=== PATIENT | male | born 1985 | race Caucasian/White ===

== ENCOUNTER 2019-12-28 04:59 | Inpatient (IN) | payer BC ==
[~2019-12-28] VITALS: Ht 177.8 cm; Wt 66.0 kg
[2019-12-28 05:33] LABS: CLARITY,URINE CLEAR (Clear); COLOR,URINE YELLOW (Yellow); GLUCOSE, URINE NEGATIVE (Neg); KETONES,URINE NEGATIVE (Neg); LEUKOCYTE ESTERASE ,URINE NEGATIVE (Neg); NITRITES, URINE NEGATIVE (Neg); OCCULT BLOOD,URINE NEGATIVE (Neg); PROTEIN,URINE NEGATIVE (Neg); UROBILINOGEN,URINE 0.2 E.U/dL (0.2-1.0)
[2019-12-28 05:34] LABS: BASOPHILS % (AUTO) 0.5 % (0-1); EOSINOPHILS # (AUTO) 0.1 X10'3 (0-0.9); EOSINOPHILS % (AUTO) 2.4 % (0-6); HEMATOCRIT 44.6 % (42.0-52.0); HEMOGLOBIN 15.3 g/dl (14.0-17.9); LYMPHOCYTES # (AUTO) 1.8 X10'3 (1.1-4.8); MEAN CORPUSCULAR HEMOGLOBIN 30.9 PG (27.0-31.0); MEAN CORPUSCULAR HGB CONC 34.3 g/dL (33.0-36.5); MEAN CORPUSCULAR VOLUME 90.1 FL (78-98); MEAN PLATELET VOLUME 7.3 FL (7.4-10.4); MONOCYTES # (AUTO) 0.5 X10'3 (0-0.9); MONOCYTES % (AUTO) 8.1 % (2-12); NEUTROPHILS # (AUTO) 3.6 X10'3 (1.8-7.7); PLATELET COUNT 317 X10'3 (140-440); RED BLOOD COUNT 4.95 X10'6 (4.70-6.10); RED CELL DISTRIBUTION WIDTH 12.6 % (11.5-14.5); WHITE BLOOD COUNT 6.1 X10'3 (4.5-11.0)
[2019-12-28 05:42] LABS: UA COLLECTION TYPE CLN CATCH MIDSTREAM
[2019-12-28 05:45] LABS: ALANINE AMINOTRANSFERASE 36 U/L (12-78); ALBUMIN 4.1 G/DL (3.4-5.0); ALBUMIN/GLOBULIN RATIO 1.5 (1.1-1.5); ALKALINE PHOSPHATASE 73 IU/L (46-116); ANION GAP 12 (8-16); ASPARTATE AMINO TRANSFERASE 22 U/L (10-37); BILIRUBIN,TOTAL 0.8 MG/DL (0.1-1.0); BLOOD UREA NITROGEN 12 MG/DL (7-18); BUN/CREATININE RATIO 12.4 (5.4-32.0); CALCIUM 8.7 MG/DL (8.5-10.1); CHLORIDE 104 MMOL/L (99-107); CREATININE 0.97 MG/DL (0.60-1.10); GLUCOSE 161 MG/DL (70-104); POTASSIUM 3.2 MMOL/L (3.5-5.1); SODIUM 141 MMOL/L (135-145); TOTAL CARBON DIOXIDE 24.8 MMOL/L (24-32); TOTAL PROTEIN 6.9 G/DL (6.4-8.2); eGFR 88 ML/MIN
[2019-12-28 06:06] LABS: LIPASE 10775 U/L (73-393)
[2019-12-28] MEDS ORDERED: morphine 4 MG/ML inj SYRINge IV PRN (06:40)
[2019-12-28] MEDS ORDERED: ondansetron/PF 4mg/2ml inj IV ONE (06:40)
[2019-12-28] MEDS ORDERED: normal saline 1000ML IV soln IVB ONE (06:40)
[2019-12-28] MEDS ORDERED: morphine 4 MG/ML inj SYRINge IV ONE (07:20)
[2019-12-28] MEDS ORDERED: iohexol 300mg/ml 100ml inj. ONE (08:02)
[2019-12-28] MEDS ORDERED: HYDROmorphone 1 mg/ml syringe IV ONE (09:10)
[2019-12-28] MEDS ORDERED: acetaminophen 650mg rectal suppository RC PRN (09:15)
[2019-12-28] MEDS ORDERED: magnesium 2GM in 50ml NS 50 ML IV PRN (09:15)
[2019-12-28] MEDS ORDERED: potassium Cl 20 mEq SR tablet PO PRN ×2 (09:15)
[2019-12-28] MEDS ORDERED: HYDROcodone/acetaminophen 10/325mg tab PO PRN (09:15)
[2019-12-28] MEDS ORDERED: HYDROcodone/acetaminophen 5mg/325mg tablet PO PRN (09:15)
[2019-12-28] MEDS ORDERED: HYDROmorphone inj. 0.5 MG/0.5 ML DISP.SYRIN IV PRN (09:15)
[2019-12-28] MEDS ORDERED: thiamine 100mg/ml 2ml inj. IV ONE (09:15)
[2019-12-28] MEDS ORDERED: metoclopramide 5 mg/ml inj IV PRN (09:15)
[2019-12-28] MEDS ORDERED: magnesium Cl slow-release 64mg tablet PO PRN (09:15)
[2019-12-28] MEDS ORDERED: LORazepam 2 mg/ml vial IV PRN (09:15)
[2019-12-28] MEDS ORDERED: magnesium 4gm in 100ml NS 100 ML IV PRN (09:15)
[2019-12-28] MEDS ORDERED: haloperidol lactate 5mg/ml inj IM PRN (09:15)
[2019-12-28] MEDS ORDERED: haloperidol 5mg tablet PO PRN (09:15)
[2019-12-28] MEDS ORDERED: mag hydrox/Alum hydrox/simeth 30ml oral suspension PO PRN (09:15)
[2019-12-28] MEDS ORDERED: acetaminophen 325mg tablet PO PRN ×2 (09:15)
[2019-12-28] MEDS ORDERED: potassium CL 10mEq/100ml bag 100 ML IV PRN (09:15)
[2019-12-28] MEDS ORDERED: magnesium hydroxide 30ml (MOM) UD suspension PO PRN (09:15)
[2019-12-28] MEDS ORDERED: dextrose 50%-water 50ml dispensing syringe IV PRN (09:15)
[2019-12-28] MEDS ORDERED: bisacodyl 10mg suppository rectal RC PRN (09:15)
[2019-12-28] MEDS ORDERED: NO HOME MEDS (09:24)
[2019-12-28] MEDS: nicotine 14mg patch - 24hr TD SCH (09:30)
[2019-12-28] MEDS: potassium Cl 20mEq in NS 1,000 ML IV SCH ×2 (09:59→19:11)
--- NOTE | 2019-12-28 10:57 | NUR ---
KIRSTY telephone report phoned to admission nurse Addendum: 12/28/19 at 1101 by KATHLEEN Phoned report to RN. Yumiko Pt to be transported to admission bed shortly.
--- NOTE | 2019-12-28 11:02 | NUR ---
Received report from LOS Scherer. Awaiting patient arrival to room 344B.
[2019-12-28 11:03] LABS: PARTIAL THROMBOPLASTIN TIME 23 SECONDS (22-32)
[2019-12-28] MEDS: HYDROmorphone 1 mg/ml syringe IV PRN (11:54)
[2019-12-28] MEDS: potassium CL 10mEq/100ml bag 100 ML IV PRN ×4 (11:56→19:49)
[2019-12-28] MEDS: ondansetron/PF 4mg/2ml inj IV PRN ×2 (12:00→21:01)
--- NOTE | 2019-12-28 12:07 | NUR ---
Received patient to room 344B. Patient alert and oriented and c/o pain 12/20 to "all around abdomen." Dr. You notified and received order for dilaudid [employer] standard settings. Patient oriented to room and call light. Bed is low and locked and call light within patient's reach.
[2019-12-28 12:10] VITALS: BP 139/83
[2019-12-28] MEDS: HYDROmorphone/NS 1 mg/ml CADD 50 ML IV SCH ×6 (13:35→23:00)
--- NOTE | 2019-12-28 15:21 | NUR ---
Nutrition Consult: Pt admit w/ acute pancreatitis, hypokalemia, and etoh/tobacco abuse per MD. Drinks 6-7 beers/day per EMR. Lipase 29806. No tox screen and MCV WNL at this time. Pt has been advanced to clear liquid diet today pending PO hx. S/p one time thiamin dose w/ N/V/abdominal pain noted per EMR; RD d/w RN regarding banana bag if MD agreeable given etoh hx and current GI symptoms. Pt well-developed/well-nourished per EMR. Will monitor for PO diet advancement and tolerance this admit. Rec: 1. advance diet as medically indicated to low-fat 2. monitor for ONS needs as diet advances 3. thiamin, folic, MVI if MD agreeable given etoh hx 4. bowel care as needed 5. scaled wt Addendum: 12/28/19 at [address] Amended: Links added.
--- NOTE | 2019-12-28 18:30 | NUR ---
Patient in room [facility]. I have received report from Shaggy MADISON and had the opportunity to ask questions and assume patient care.
--- NOTE | 2019-12-28 18:41 | NUR ---
Problems reprioritized. Patient report given, questions answered & plan of care reviewed with LOS Shepard.
[2019-12-28] MEDS: K and/or MAG REPLACEMENT MC SCH (19:13)
[2019-12-28 20:00] VITALS: BP 128/76
[2019-12-29] VITALS: BP 109/66
[2019-12-29] MEDS: HYDROmorphone/NS 1 mg/ml CADD 50 ML IV SCH ×7 (01:00→13:00)
[2019-12-29] MEDS: potassium Cl 20mEq in NS 1,000 ML IV SCH (02:11)
[2019-12-29 05:11] LABS: BASOPHILS % (AUTO) 0 % (0-1); EOSINOPHILS % (AUTO) 0.1 % (0-6); HEMATOCRIT 46.4 % (42.0-52.0); HEMOGLOBIN 15.6 g/dl (14.0-17.9); LYMPHOCYTES # (AUTO) 0.7 X10'3 (1.1-4.8); LYMPHOCYTES % (AUTO) 5.6 % (21-51); MEAN CORPUSCULAR HEMOGLOBIN 30.9 PG (27.0-31.0); MEAN CORPUSCULAR HGB CONC 33.7 g/dL (33.0-36.5); MEAN CORPUSCULAR VOLUME 91.5 FL (78-98); MEAN PLATELET VOLUME 7.2 FL (7.4-10.4); MONOCYTES # (AUTO) 0.6 X10'3 (0-0.9); MONOCYTES % (AUTO) 4.6 % (2-12); NEUTROPHILS # (AUTO) 11.6 X10'3 (1.8-7.7); NEUTROPHILS % (AUTO) 89.7 % (42-75); PLATELET COUNT 242 X10'3 (140-440); RED BLOOD COUNT 5.07 X10'6 (4.70-6.10); RED CELL DISTRIBUTION WIDTH 12.9 % (11.5-14.5); WHITE BLOOD COUNT 12.9 X10'3 (4.5-11.0)
[2019-12-29 05:16] LABS: ALANINE AMINOTRANSFERASE 25 U/L (12-78); ALBUMIN 3.5 G/DL (3.4-5.0); ALBUMIN/GLOBULIN RATIO 1.3 (1.1-1.5); ALKALINE PHOSPHATASE 61 IU/L (46-116); ANION GAP 8 (8-16); ASPARTATE AMINO TRANSFERASE 22 U/L (10-37); BILIRUBIN,TOTAL 0.7 MG/DL (0.1-1.0); BLOOD UREA NITROGEN 5 MG/DL (7-18); BUN/CREATININE RATIO 5.7 (5.4-32.0); CALCIUM 8.3 MG/DL (8.5-10.1); CHLORIDE 105 MMOL/L (99-107); CHOLESTEROL 160 MG/DL (0-200); CREATININE 0.87 MG/DL (0.60-1.10); GLUCOSE 89 MG/DL (70-104); MAGNESIUM 1.9 MG/DL (1.5-2.4); POTASSIUM 4.6 MMOL/L (3.5-5.1); SODIUM 141 MMOL/L (135-145); TOTAL CARBON DIOXIDE 28.3 MMOL/L (24-32); TOTAL PROTEIN 6.2 G/DL (6.4-8.2); eGFR > 90 ML/MIN
[2019-12-29 05:17] LABS: HDL CHOLESTEROL 54 MG/DL (35-60); LDL CHOLESTEROL 88 MG/DL (50-100); TRIGLYCERIDES 73 MG/DL (20-135)
--- NOTE | 2019-12-29 06:35 | NUR ---
Problems reprioritized. Patient report given, questions answered & plan of care reviewed with Angella MADISON.
--- NOTE | 2019-12-29 06:44 | NUR ---
Patient in room [facility] 344. I have received report from adarsh MADISON and had the opportunity to ask questions and assume patient care.
[2019-12-29 07:00] VITALS: BP 132/88
[2019-12-29] MEDS: K and/or MAG REPLACEMENT MC SCH ×2 (08:00→20:00)
[2019-12-29] MEDS: nicotine 14mg patch - 24hr TD SCH (08:00)
[2019-12-29] MEDS: enoxaparin 40mg/0.4ml syringe SUBCUT SCH (08:12)
[2019-12-29] MEDS ORDERED: CefTRIAXone 2gm/D5W 50ml 50 ML IV ONE (09:05)
[2019-12-29 11:45] VITALS: BP 121/79
[2019-12-29] MEDS: normal saline 1000ml 1,000 ML IV SCH (14:09)
[2019-12-29] MEDS ORDERED: CADD PCA waste documentation MC SCH (14:20)
[2019-12-29 15:01] LABS: LIPASE 6211 U/L (73-393)
[2019-12-29] MEDS: HYDROmorphone 1 mg/ml syringe IV PRN (15:34)
--- NOTE | 2019-12-29 17:53 | NUR ---
Patient seen by Dr singleton . danya alaniz me, patient commenced on dilaudid 1mg q4hrly. up to shower continues with clear liquids.will continue to monitor.
[2019-12-29 18:00] VITALS: BP 103/69
--- NOTE | 2019-12-29 18:30 | NUR ---
Problems reprioritized. Patient report given, questions answered & plan of care reviewed with Kenan MADISON.
[2019-12-29] MEDS: ondansetron/PF 4mg/2ml inj IV PRN (18:57)
[2019-12-29] MEDS: temazepam 15mg capsule PO PRN (22:23)
[2019-12-30] VITALS: BP 105/64
[2019-12-30] MEDS: normal saline 1000ml 1,000 ML IV SCH ×3 (00:54→21:01)
[2019-12-30] MEDS: HYDROmorphone 1 mg/ml syringe IV PRN (02:23)
[2019-12-30 05:46] LABS: BASOPHILS % (AUTO) 0.1 % (0-1); EOSINOPHILS % (AUTO) 0.3 % (0-6); HEMATOCRIT 40.6 % (42.0-52.0); HEMOGLOBIN 13.8 g/dl (14.0-17.9); LYMPHOCYTES % (AUTO) 8.9 % (21-51); MEAN CORPUSCULAR HEMOGLOBIN 31.2 PG (27.0-31.0); MEAN CORPUSCULAR HGB CONC 33.8 g/dL (33.0-36.5); MEAN CORPUSCULAR VOLUME 92.3 FL (78-98); MEAN PLATELET VOLUME 7.2 FL (7.4-10.4); MONOCYTES # (AUTO) 0.6 X10'3 (0-0.9); MONOCYTES % (AUTO) 5.9 % (2-12); NEUTROPHILS # (AUTO) 9.3 X10'3 (1.8-7.7); NEUTROPHILS % (AUTO) 84.8 % (42-75); PLATELET COUNT 215 X10'3 (140-440); RED CELL DISTRIBUTION WIDTH 12.6 % (11.5-14.5)
[2019-12-30 06:08] LABS: ALANINE AMINOTRANSFERASE 134 U/L (12-78); ALBUMIN 3.1 G/DL (3.4-5.0); ALKALINE PHOSPHATASE 130 IU/L (46-116); ANION GAP 5 (8-16); ASPARTATE AMINO TRANSFERASE 102 U/L (10-37); BILIRUBIN,TOTAL 0.8 MG/DL (0.1-1.0); BLOOD UREA NITROGEN 6 MG/DL (7-18); BUN/CREATININE RATIO 7.4 (5.4-32.0); CALCIUM 8.4 MG/DL (8.5-10.1); CHLORIDE 104 MMOL/L (99-107); CREATININE 0.81 MG/DL (0.60-1.10); GLUCOSE 79 MG/DL (70-104); MAGNESIUM 2.1 MG/DL (1.5-2.4); POTASSIUM 3.6 MMOL/L (3.5-5.1); SODIUM 139 MMOL/L (135-145); TOTAL CARBON DIOXIDE 29.9 MMOL/L (24-32); TOTAL PROTEIN 6.1 G/DL (6.4-8.2); eGFR > 90 ML/MIN
--- NOTE | 2019-12-30 06:56 | NUR ---
Patient in room [facility] 344. I have received report from Knean MADISON and had the opportunity to ask questions and assume patient care.
[2019-12-30 07:00] VITALS: BP 100/58
[2019-12-30] MEDS: nicotine 14mg patch - 24hr TD SCH (08:00)
[2019-12-30] MEDS: K and/or MAG REPLACEMENT MC SCH ×2 (08:00→19:08)
[2019-12-30] MEDS: enoxaparin 40mg/0.4ml syringe SUBCUT SCH (08:00)
[2019-12-30] MEDS ORDERED: LORazepam 2 mg/ml vial IV PRN (09:15)
[2019-12-30] MEDS ORDERED: LORazepam 1 MG tablet PO PRN (09:15)
[2019-12-30 11:00] VITALS: BP 100/58
[2019-12-30 14:05] LABS: LIPASE 2025 U/L (73-393)
--- NOTE | 2019-12-30 16:00 | NUR ---
patient seen by Dr singleton. IV fluids changed, Diet increased to Reg. patient c/o stomach pain following diet increased given maalox with effect. . Ambulating in hallway, will continue to monitor.
[2019-12-30 18:00] VITALS: BP 124/73
--- NOTE | 2019-12-30 18:12 | NUR ---
Problems reprioritized. Patient report given, questions answered & plan of care reviewed with Prudence RN.
[2019-12-30] MEDS: temazepam 15mg capsule PO PRN (22:08)
[2019-12-31] VITALS: BP 108/64
[2019-12-31 05:11] LABS: BASOPHILS % (AUTO) 0.3 % (0-1); EOSINOPHILS # (AUTO) 0.1 X10'3 (0-0.9); EOSINOPHILS % (AUTO) 1.2 % (0-6); HEMATOCRIT 38.4 % (42.0-52.0); HEMOGLOBIN 13.1 g/dl (14.0-17.9); LYMPHOCYTES % (AUTO) 12.3 % (21-51); MEAN CORPUSCULAR HEMOGLOBIN 31.2 PG (27.0-31.0); MEAN CORPUSCULAR HGB CONC 34.2 g/dL (33.0-36.5); MEAN CORPUSCULAR VOLUME 91.4 FL (78-98); MEAN PLATELET VOLUME 7.4 FL (7.4-10.4); MONOCYTES # (AUTO) 0.6 X10'3 (0-0.9); MONOCYTES % (AUTO) 7.4 % (2-12); NEUTROPHILS # (AUTO) 6.2 X10'3 (1.8-7.7); NEUTROPHILS % (AUTO) 78.8 % (42-75); PLATELET COUNT 239 X10'3 (140-440); RED BLOOD COUNT 4.19 X10'6 (4.70-6.10); RED CELL DISTRIBUTION WIDTH 12.5 % (11.5-14.5); WHITE BLOOD COUNT 7.9 X10'3 (4.5-11.0)
[2019-12-31 05:22] LABS: ALANINE AMINOTRANSFERASE 80 U/L (12-78); ALBUMIN/GLOBULIN RATIO 0.9 (1.1-1.5); ALKALINE PHOSPHATASE 107 IU/L (46-116); ANION GAP 8 (8-16); ASPARTATE AMINO TRANSFERASE 39 U/L (10-37); BILIRUBIN,TOTAL 0.6 MG/DL (0.1-1.0); BLOOD UREA NITROGEN 7 MG/DL (7-18); BUN/CREATININE RATIO 8.1 (5.4-32.0); CALCIUM 8.4 MG/DL (8.5-10.1); CHLORIDE 106 MMOL/L (99-107); CREATININE 0.86 MG/DL (0.60-1.10); GLUCOSE 100 MG/DL (70-104); LIPASE 1077 U/L (73-393); MAGNESIUM 2.2 MG/DL (1.5-2.4); POTASSIUM 3.7 MMOL/L (3.5-5.1); SODIUM 143 MMOL/L (135-145); TOTAL CARBON DIOXIDE 29.4 MMOL/L (24-32); TOTAL PROTEIN 6.4 G/DL (6.4-8.2); eGFR > 90 ML/MIN
--- NOTE | 2019-12-31 06:35 | NUR ---
Patient in room [facility]. I have received report from LOS Jacobs and had the opportunity to ask questions and assume patient care.
[2019-12-31 07:12] VITALS: BP 104/68
[2019-12-31] MEDS: nicotine 14mg patch - 24hr TD SCH (08:00)
[2019-12-31] MEDS: K and/or MAG REPLACEMENT MC SCH (08:00)
[2019-12-31] MEDS: enoxaparin 40mg/0.4ml syringe SUBCUT SCH (08:00)
[2019-12-31] MEDS ORDERED: PANT40TA4 PO (10:10)
[2019-12-31] MEDS ORDERED: FOLI0.4T2 PO (10:10)
[2019-12-31] MEDS ORDERED: THIA50TA10 PO (10:10)
--- NOTE | 2019-12-31 11:37 | NUR ---
Pt discharged at 1125 to home, with all belongings. Discharge instructions and medications reviewed. New prescriptions sent to [facility] on [facility]. Pt instructed to follow up with labs in 1 week to reassess his lipase level. IV DC'd, cannula intact. Pt instructed to return to ED if symptoms return, and to abstain from alcohol. Pt escorted to front lobby by student RN.
[2020-01-01] MEDS ORDERED: LORazepam 2 mg/ml vial IV PRN (09:15)
[2020-01-01] MEDS ORDERED: LORazepam 1 MG tablet PO PRN (09:15)
== END 2019-12-31 11:46 | disposition home or self-care (01) | DRG 440 ==
LOC: ER 05:00 → ED HOLD 09:11 → SUR 3N 11:15
PROVIDERS: ADMIT Family Medicine; ATTEND Family Medicine
PROC: BW211ZZ Computerized Tomography (CT Scan) of Abdomen and Pelvis using Low Osmolar Contrast (ICD-10-PCS; principal; 2019-12-28)
DX: K85.20 Alcohol induced acute pancreatitis without necrosis or infection (principal); E87.6 Hypokalemia; F17.210 Nicotine dependence, cigarettes, uncomplicated; F10.10 Alcohol abuse, uncomplicated; Z90.49 Acquired absence of other specified parts of digestive tract
CPT/HCPCS: 36415; 71045; 74177; 80053; 80061; 81003; 83605; 83690; 83735; 84145; 85025; 85610; 85730; 87040; 87081; 96361; 96374; 96375; 96376; 99285; G0378; J0696; J1170; J1650; J2060; J2270; J2405; J3411; J3480; J7030; Q9967